=== PATIENT | female | born 1980 | race Caucasian/White ===

== ENCOUNTER 2020-12-31 19:29 | Emergency (ER) | payer OTHER ==
[~2020-12-31 19:29] MED LIST: AZITHROMYCIN500 MG PO; OMNICEF 300 MG300 MG PO; PREDNISONE 20 M20 MG GT; PREDNISONE 20 M20 MG PO; SYMBICORT 16010.2 GM INH
[2021-01-01] MEDS ORDERED: Voltaren Gel 1 % TOP (14:37)
== END 2020-12-31 21:15 | disposition left against medical advice (07) ==
LOC: ER1 19:29
DX: R07.81 Pleurodynia (principal); Z53.21 Procedure and treatment not carried out due to patient leaving prior to being seen by health care provider

== ENCOUNTER 2021-01-01 13:12 | Emergency (ER) | payer OTHER ==
[2021-01-01] MEDS ORDERED: Voltaren Gel 1 % TOP (14:37)
== END 2021-01-01 15:01 | disposition home or self-care (01) ==
LOC: ER1 13:12
DX: M79.651 Pain in right thigh (principal); E11.9 Type 2 diabetes mellitus without complications; I10 Essential (primary) hypertension; R10.9 Unspecified abdominal pain; R07.9 Chest pain, unspecified; F17.210 Nicotine dependence, cigarettes, uncomplicated; Z90.49 Acquired absence of other specified parts of digestive tract; V49.60XA Unspecified car occupant injured in collision with unspecified motor vehicles in traffic accident, initial encounter; Y92.410 Unspecified street and highway as the place of occurrence of the external cause
CPT/HCPCS: 99283

== ENCOUNTER 2021-01-24 14:02 | Emergency (ER) | payer OTHER ==
[~2021-01-24 14:02] MED LIST changes: +Voltaren Gel 1 % TOP
[2021-01-24 17:00] LABS: HEMOGLOBIN 14.5 gm/dl (12.3-15.3); RED BLOOD COUNT 4.8 M/UL (4.00-5.10); WHITE BLOOD COUNT 12.6 K/UL (4.5-11.0)
[2021-01-24 17:23] LABS: BUN/CREATININE RATIO 11 (0-10)
[2021-01-24] MEDS ORDERED: MEDROL DOSEPAK 24 MG PO (19:48)
[2021-01-24] MEDS ORDERED: NORFLEX 100 MG100 MG PO (19:48)
== END 2021-01-24 20:00 | disposition home or self-care (01) ==
LOC: ER1 14:02
PROVIDERS: Physician Assistant Medical
DX: R07.89 Other chest pain (principal); E11.9 Type 2 diabetes mellitus without complications; I10 Essential (primary) hypertension; J44.9 Chronic obstructive pulmonary disease, unspecified; F17.210 Nicotine dependence, cigarettes, uncomplicated; Z90.89 Acquired absence of other organs
CPT/HCPCS: 71046; 80053; 82550; 82553; 83874; 84484; 85025; 85379; 93005; 99285; Q9967

== ENCOUNTER 2021-01-27 21:22 | Emergency (ER) | payer OTHER ==
[~2021-01-27 21:22] MED LIST changes: +MEDROL DOSEPAK 24 MG PO; +NORFLEX 100 MG100 MG PO
[2021-01-27] MEDS ORDERED: VIBRAMYCIN100 MG PO (23:55)
[2021-01-27] MEDS ORDERED: TESSALON PERLE100 MG PO (23:55)
== END 2021-01-28 00:31 | disposition home or self-care (01) ==
LOC: ER1 21:22
DX: J44.0 Chronic obstructive pulmonary disease with (acute) lower respiratory infection (principal); J18.9 Pneumonia, unspecified organism; F17.210 Nicotine dependence, cigarettes, uncomplicated; Z20.822 Contact with and (suspected) exposure to COVID-19
CPT/HCPCS: 0240U; 99284

== ENCOUNTER → 2021-11-19 | Outpatient (CLI) | payer OTHER ==
[~2021-11-19] MED LIST changes: +TESSALON PERLE100 MG PO; +VIBRAMYCIN100 MG PO
== END ==
LOC: KOH-I 11:30
DX: M54.50 Low back pain, unspecified (principal)
CPT/HCPCS: 72100

== ENCOUNTER 2022-05-24 15:38 | Emergency (ER) | payer OTHER ==
[2022-05-24 17:31] LABS: HEMOGLOBIN 14.3 gm/dl (12.3-15.3); RED BLOOD COUNT 4.6 M/UL (4.00-5.10); WHITE BLOOD COUNT 17.1 K/UL (4.5-11.0)
[2022-05-24 17:49] LABS: BUN/CREATININE RATIO 14 (0-10)
[2022-05-24] MEDS ORDERED: BENZONATATE100 MG PO (19:13)
== END 2022-05-24 19:27 | disposition home or self-care (01) ==
LOC: ER1 15:38
PROVIDERS: Emergency Medicine
DX: J06.9 Acute upper respiratory infection, unspecified (principal); R19.7 Diarrhea, unspecified; D72.829 Elevated white blood cell count, unspecified; E11.9 Type 2 diabetes mellitus without complications; F17.200 Nicotine dependence, unspecified, uncomplicated; Z20.822 Contact with and (suspected) exposure to COVID-19
CPT/HCPCS: 0240U; 71045; 80053; 81001; 82550; 82553; 83880; 84484; 85025; 85379; 87081; 87880; 99284

== ENCOUNTER 2022-06-20 13:43 | Emergency (ER) | payer OTHER ==
[~2022-06-20 13:43] MED LIST changes: +BENZONATATE100 MG PO
== END 2022-06-20 16:05 | disposition left against medical advice (07) ==
LOC: ER1 13:43
DX: Z53.21 Procedure and treatment not carried out due to patient leaving prior to being seen by health care provider (principal)
CPT/HCPCS: 93005

== ENCOUNTER 2022-06-20 22:09 | Emergency (ER) | payer OTHER ==
[2022-06-20 22:29] LABS: HEMOGLOBIN 11.3 gm/dl (12.3-15.3); RED BLOOD COUNT 3.92 M/UL (4.00-5.10); WHITE BLOOD COUNT 12.4 K/UL (4.5-11.0)
[2022-06-20 23:03] LABS: BUN/CREATININE RATIO 9 (0-10)
== END 2022-06-21 02:10 | disposition left against medical advice (07) ==
LOC: ER1 22:09
PROVIDERS: Family Medicine
DX: Z53.21 Procedure and treatment not carried out due to patient leaving prior to being seen by health care provider (principal)
CPT/HCPCS: 71045; 80053; 82550; 82553; 84484; 85025; 93005